=== PATIENT | female | born 2000 | race Caucasian/White ===

== ENCOUNTER 2019-11-18 11:17 | Inpatient (IN) | payer MEDICAID ==
[~2019-11-18] VITALS: Ht 152.4 cm; Wt 72.6 kg
[2019-11-18] MEDS ORDERED: MAGNESIUM SULFATE 1 GM/2 ML VIAL ONE (11:26)
[2019-11-18] MEDS ORDERED: methylPREDNISolone SOD SUCC 125 MG/2 ML VIAL ONE (11:27)
[2019-11-18] MEDS ORDERED: IPRATROPIUM BROMIDE 0.5 MG/2.5 ML NEBU ONE (11:29)
[2019-11-18] MEDS ORDERED: ALBUTEROL SULFATE 2.5 MG/3 ML NEBU ONE (11:29)
[2019-11-18] MEDS ORDERED: methylPREDNISolone SOD SUCC 125 MG/2 ML VIAL IV ONE (11:30)
[2019-11-18] MEDS ORDERED: IPRATROPIUM BROMIDE 0.5 MG/2.5 ML NEBU NEB ONE (11:30)
[2019-11-18] MEDS ORDERED: MAGNESIUM SULFATE 2 GM in IV DEXTROSE 5% 100 ML IV ONE (11:30)
[2019-11-18] MEDS ORDERED: ALBUTEROL SULFATE 2.5 MG/3 ML NEBU NEB ONE (11:30)
[2019-11-18 11:40] LABS: BASOPHILS % (AUTO) 0.5 % (0.0-2.0); EOSINOPHILS # (AUTO) 0.7 K/uL (0.0-0.7); EOSINOPHILS % (AUTO) 9.2 % (0.0-7.0); HEMATOCRIT 43.6 % (31.2-41.9); HEMOGLOBIN 14.5 g/dL (10.9-14.3); LYMPHOCYTES # (AUTO) 2.7 K/uL (20.0-40.0); LYMPHOCYTES % (AUTO) 33.7 % (20.5-74.5); MEAN CORPUSCULAR HEMOGLOBIN 28.6 uug (24.7-32.8); MEAN CORPUSCULAR HGB CONC 33 g/dL (32.3-35.6); MEAN CORPUSCULAR VOLUME 86.1 fL (75.5-95.3); MONOCYTES # (AUTO) 0.5 K/uL (2.0-10.0); MONOCYTES % (AUTO) 5.7 % (0-11); NEUTROPHILS # (AUTO) 4.1 K/uL (1.8-8.9); NEUTROPHILS % (AUTO) 50.9 % (31.5-64.5); PLATELET COUNT (AUTO) 344 K/uL (179-408); RED BLOOD CELL COUNT(AUTO) 5.06 MIL/uL (3.63-4.92)
[2019-11-18 11:47] LABS: CREATININE 0.9 mg/dL (0.6-1.3); POTASSIUM 3.8 mmol/L (3.5-5.1)
[2019-11-18] MEDS ORDERED: levoFLOXacin 750MG/D5W 150 ML IV ONE (12:30)
[2019-11-18] MEDS ORDERED: diphenhydrAMINE 50 MG/1 ML VIAL ONE (12:58)
[2019-11-18] MEDS ORDERED: diphenhydrAMINE 50 MG/1 ML VIAL IV ONE (13:00)
--- NOTE | 2019-11-18 13:00 | NUR ---
pt c/o if itchiness on the hands after solumedrol. md notified.
--- NOTE | 2019-11-18 13:05 | NUR ---
pt oxygenation improved to 99% after breathing tx. pt says feels better, able to talk in complete sentences, but still on non- rebreather, will continue to monitor the pt.
--- NOTE | 2019-11-18 13:19 | NUR ---
tried nc on 4 litre, to see how the pt tolerates, o2 sat came yossi 100% to 94%, pt states that she is more comfortable with non- rebreather on. placed non- rebreather back on, o2 sat came up to 99%.
--- NOTE | 2019-11-18 13:35 | NUR ---
dr. schofield at bedside.
--- NOTE | 2019-11-18 13:40 | NUR ---
pt admitted to [facility], trnasfer pending on rapid covid 19 results.
[2019-11-18] MEDS ORDERED: IV NORMAL SALINE 1000 ML BAG IV ONE (13:45)
--- NOTE | 2019-11-18 14:43 | NUR ---
pt ambulated to bathroom with steady gait.
[2019-11-18] MEDS ORDERED: Z GUARD REMEDY PASTE 57 GM TUBE TOP PRN (15:30)
[2019-11-18] MEDS ORDERED: ACETAMINOPHEN 325 MG TABLET PO PRN (15:30)
[2019-11-18] MEDS ORDERED: CEFTRIAXONE /D5W 50ML IVPB **ER PYXIS IV ONE (15:31)
[2019-11-18] MEDS: CEFTRIAXONE 1 G in IV DEXTROSE 5% 50 ML IV SCH (15:32)
[2019-11-18 15:57] VITALS: BP 137/79
[2019-11-18] MEDS ORDERED: AZITHROMYCIN IV 500 MG in IV DEXTROSE 5% 250 ML IV SCH (16:30)
[2019-11-18] MEDS: IPRATROPIUM BROMIDE 0.5 MG/2.5 ML NEBU NEB SCH ×2 (16:51→20:50)
[2019-11-18] MEDS: ENOXAPARIN SODIUM 40 MG/0.4 ML DISP.SYRIN SQ SCH (16:51)
[2019-11-18] MEDS: ALBUTEROL SULFATE 2.5 MG/3 ML NEBU NEB SCH ×2 (16:51→20:50)
[2019-11-18] MEDS ORDERED: ENOXAPARIN SODIUM 40 MG/0.4 ML DISP.SYRIN SQ ONE (16:55)
[2019-11-18 16:58] LABS: BILIRUBIN,DIRECT < 0.1 mg/dL (0.0-0.2); BILIRUBIN,TOTAL 0.2 mg/dL (0.2-1.0)
--- NOTE | 2019-11-18 17:01 | NUR ---
transfered pt to floor in stable condition.
--- NOTE | 2019-11-18 17:27 | NUR ---
Patient in from ER. able to transfer herself from [facility] to bed. AAOX4. Vitals stable 98.3 axxillary HR of 131, sbp of 137/78, RR 22.
--- NOTE | 2019-11-18 17:35 | NUR ---
Pulmonary services, Dr. Recinos called to be notified of pt's arrival to the unit, full telephone report given. Orders received and implemented, and at 1810 He was called to be informed of ABG results. Orders to continue with care plan received.
[2019-11-18 17:57] LABS: ABG BASE EXCESS -9.1 mmol/L; ABG HCO3 15.2 mmol/L; ABG PCO2 28.8 mmHg (35.0-45.0); ABG PH 7.339 (7.350-7.450); ABG PO2 89.1 mmHg (75.0-100.0); ABG SITE RIGHT RADIAL; ABG TOTAL HEMOGLOBIN 13.7 G/dL (12.0-16.0); COHb 0.8 % (0.5-1.5); MetHb 0.2 % (0.0-1.5); O2Hb 96.2 % (94.0-97.0); VENT MODE Nasal Cannula
[2019-11-18] MEDS: AZITHROMYCIN IV 500 MG in IV DEXTROSE 5% 250 ML IV SCH (18:16)
[2019-11-18] MEDS: methylPREDNISolone SOD SUCC 40 MG/ML VIAL IV SCH (18:19)
[2019-11-18] MEDS: ONDANSETRON 4 MG/2 ML VIAL IV PRN (19:31)
[2019-11-18 20:00] VITALS: BP 122/72
--- NOTE | 2019-11-18 20:00 | NUR ---
RECEIVED PT AWAKE , ALERT & ORIENTED X4. C/O NAUSEA, MEDICATED W/ ZOFRAN 4MG IVP ORDERED. CALLED DR TRACY RE: THE LACTIC ACID RESULT-2.9 W/ ORDER. HUNG IVF 1/2NS @ 100CC/HR ON RAC. UP IN COMMODE VOIDED & HAD A BOWEL MOVEMENT. SLIGHT SOB NOTED ON INCREASED OF ACTIVITY.ON O2 @ 3L NC W/ O2 SAT OF 100%.
[2019-11-18] MEDS: IV 1/2NS 1000 ML 1,000 ML IV PRN (20:04)
--- NOTE | 2019-11-18 23:00 | NUR ---
PT. STATED SHE FEELS A LOT BETTER. UP IN BEDSIDE COMMODE WITH NO O2 W/ O2 SAT OF 98%.
[2019-11-19] VITALS: BP 91/56
[2019-11-19] MEDS: ALBUTEROL SULFATE 2.5 MG/3 ML NEBU NEB SCH ×8 (00:01→22:30)
[2019-11-19] MEDS: IPRATROPIUM BROMIDE 0.5 MG/2.5 ML NEBU NEB SCH ×8 (00:01→22:30)
[2019-11-19] MEDS: methylPREDNISolone SOD SUCC 40 MG/ML VIAL IV SCH ×4 (00:08→22:08)
[2019-11-19 04:00] VITALS: BP 109/73
[2019-11-19 05:06] LABS: BASOPHILS % (AUTO) 0.2 % (0.0-2.0); HEMATOCRIT 37.1 % (31.2-41.9); HEMOGLOBIN 12.4 g/dL (10.9-14.3); LYMPHOCYTES % (AUTO) 7.4 % (20.5-74.5); MEAN CORPUSCULAR HEMOGLOBIN 28.9 uug (24.7-32.8); MEAN CORPUSCULAR HGB CONC 34 g/dL (32.3-35.6); MEAN CORPUSCULAR VOLUME 86.3 fL (75.5-95.3); MONOCYTES # (AUTO) 0.2 K/uL (2.0-10.0); MONOCYTES % (AUTO) 1.2 % (0-11); NEUTROPHILS # (AUTO) 12.2 K/uL (1.8-8.9); NEUTROPHILS % (AUTO) 91.2 % (31.5-64.5); PLATELET COUNT (AUTO) 268 K/uL (179-408); WHITE BLOOD COUNT (AUTO) 13.4 K/uL (3.8-11.8)
[2019-11-19 05:12] LABS: BILIRUBIN,TOTAL 0.3 mg/dL (0.2-1.0); CREATININE 0.9 mg/dL (0.6-1.3); MAGNESIUM 1.7 mg/dL (1.8-2.4); PHOSPHOROUS 2.9 mg/dL (2.5-4.9); POTASSIUM 4.1 mmol/L (3.5-5.1)
[2019-11-19 05:20] LABS: THYROID STIMULATING HORMONE 0.529 mIU/mL (0.358-3.740)
[2019-11-19] MEDS: IV 1/2NS 1000 ML 1,000 ML IV PRN (06:00)
--- NOTE | 2019-11-19 06:00 | NUR ---
PT REMAINS ASLEEP. V/S STABLE.
[2019-11-19 07:00] VITALS: BP 93/56
--- NOTE | 2019-11-19 07:30 | NUR ---
RECIEVED PT LYING IN BED. AWAKE, ALERT AND ORIENTED X 4. NO APPARENT RESPIRATORY DISTRESS NOTED. 97% ON RA. VERY PLEASANT AND APPEARS IN GOOD SPIRIT. HR ST IN THE 110-117B/MIN. AFEBRILE. AMBULATORY.
[2019-11-19 08:00] VITALS: BP 106/73
--- NOTE | 2019-11-19 08:30 | NUR ---
SEENAND EXAMINED BY DR STONER WITH NEW ORDERS.
[2019-11-19] MEDS: MONTELUKAST SODIUM 10 MG TABLET PO SCH ×2 (08:49→18:42)
--- NOTE | 2019-11-19 09:30 | NUR ---
SEEN AND EXAMINED BY DR TRACY WITH NEW ORDERS.
--- NOTE | 2019-11-19 09:30 | NUR ---
2GMS OF MAGNESIUM ORDERED AND STARTED THE FIRST BAG ORDERED. MAG LEVEL IS 1.7
[2019-11-19] MEDS: MAGNESIUM SULFATE/D5W 100 ML IV SCH ×2 (10:48→11:38)
--- NOTE | 2019-11-19 14:36 | NUR ---
PT IS TRANSFERRED TO [facility] VIA W/C ACCOMPANIED BY RN. CONDITION IS STABLE.
--- NOTE | 2019-11-19 14:40 | NUR ---
Received patient from CCU, brought to room in a wheelchair. Patient is now resting comfortable in bed. No sign of respiratory distress noted, patient says she feels comfortable on room air and is saturating well at 97%. Heart rate is sinus tachy ranging from 118-125. IV patent and intact on the right AC running 1/2 NS[address] with bed in the lowest position and locked with call light and belongings in reach.
--- NOTE | 2019-11-19 15:00 | NUR ---
Scanned Albuterol and Ventolin and called RT to administer medications. Patient seemed to tolerate well. Will continue to monitor.
[2019-11-19 16:18] VITALS: BP 116/68
[2019-11-19] MEDS: CEFTRIAXONE 1 G in IV DEXTROSE 5% 50 ML IV SCH (16:34)
--- NOTE | 2019-11-19 16:35 | NUR ---
Pharmacy just brought up patient's Jose Luis
[2019-11-19] MEDS: AZITHROMYCIN IV 500 MG in IV DEXTROSE 5% 250 ML IV SCH (18:43)
--- NOTE | 2019-11-19 18:59 | NUR ---
Patient now resting comfortably in bed with no sign of distress noted. She denies any pain. Patient is currently receiving Azithromycin IV piggyback. All safety precautions taken bed in lowest position and locked with call light and belonging within reach.
--- NOTE | 2019-11-19 19:30 | NUR ---
RECEIVED PT AWAKE, ALERT AND ORIENTEDX4. PT IN NO ACUTE DISTRESS. IV INTACT. SAFETY AND COMFORT PROVIDED. WILL CONTINUE TO MONITOR.
[2019-11-19 20:02] VITALS: BP 101/56
[2019-11-19] MEDS: ENOXAPARIN SODIUM 40 MG/0.4 ML DISP.SYRIN SQ SCH (20:15)
[2019-11-19] MEDS: ONDANSETRON 4 MG/2 ML VIAL IV PRN (20:17)
[2019-11-19] MEDS ORDERED: diphenhydrAMINE 25 MG CAP PO PRN (22:00)
[2019-11-19] MEDS: diphenhydrAMINE 25 MG CAP PO PRN (22:09)
[2019-11-20 00:23] VITALS: BP 108/64
[2019-11-20] MEDS: IV 1/2NS 1000 ML 1,000 ML IV PRN (01:21)
[2019-11-20] MEDS: IPRATROPIUM BROMIDE 0.5 MG/2.5 ML NEBU NEB SCH ×3 (01:38→10:38)
[2019-11-20] MEDS: ALBUTEROL SULFATE 2.5 MG/3 ML NEBU NEB SCH ×3 (01:39→10:38)
[2019-11-20 04:56] VITALS: BP 116/73
[2019-11-20] MEDS: methylPREDNISolone SOD SUCC 40 MG/ML VIAL IV SCH (05:26)
[2019-11-20] MEDS: diphenhydrAMINE 25 MG CAP PO PRN (05:27)
--- NOTE | 2019-11-20 06:39 | NUR ---
PT SLEPT INTERMITTENTLY. PT IN NO ACUTE DISTRESS. IV INTACT. PRESCRIBED MEDICATION GIVEN AND PT TOLERATED IT WELL. SAFETY AND COMFORT PROVIDED. WILL ENDORSE TO INCOMING NURSE FOR CONTINUITY OF CARE.
--- NOTE | 2019-11-20 08:00 | NUR ---
Received pt in bed awake AOx4 on RA, refused O2 NC, denies SOB or distress at this time. On tele, currently SR 85 IV on left hand 22g running 1/2 NS @ 100cc. Denies pain at this time. Bed locked in lowest position with siderails 2x up. Call light and phone within reach. Will monitor
--- NOTE | 2019-11-20 10:00 | NUR ---
On tele ST 120s, checked pt and pt ambulated to bathroom. Denied SOB, pain at this time.
--- NOTE | 2019-11-20 11:20 | NUR ---
Pt accompanied to private car via wheelchair, picked up by family. DC forms and instructions signed and given to pt, verbalized understanding of discharge education. Prescription given to patient. Belongings list signed and all accounted for. ID band, telemetery box and IV line removed, tolerated well. No SOB or distress noted at this time.
[2019-11-20] MEDS ORDERED: methylPREDNISolone SOD SUCC 40 MG/ML VIAL IV SCH (21:00)
== END 2019-11-20 11:30 | disposition home or self-care (01) | DRG 139 ==
LOC: ER 11:17 → CCU 16:37 → TELE3 11-19 15:03
PROVIDERS: ADMIT Internal Medicine; ATTEND Internal Medicine
DX: J15.9 Unspecified bacterial pneumonia (principal); J45.901 Unspecified asthma with (acute) exacerbation; J96.01 Acute respiratory failure with hypoxia; E66.9 Obesity, unspecified; Z68.31 Body mass index [BMI] 31.0-31.9, adult; Z91.09 Other allergy status, other than to drugs and biological substances; J33.9 Nasal polyp, unspecified
CPT/HCPCS: 36415; 36600; 70030-TC; 71045; 82785; 83605; 83615; 83735; 84100; 84443; 85025; 86140; 87040; 93005; 94640; 94664; A4663; G0378; J0456; J0696; J1200; J1650; J2405; J2920; J2930; J3475; J3490; J3590; J7030; J7040; J7060; Q0163